=== PATIENT | female | born 1930 | race Caucasian/White ===

== ENCOUNTER 2019-01-23 13:49 | Inpatient (IN) | payer OTHER ==
[~2019-01-23] VITALS: Ht 152.4 cm; Wt 68.6 kg
[2019-01-23 14:31] LABS: BASOPHIL % 0.5 % (0-2); PLATELET COUNT 232 x10^3mcL (130-400); RED CELL DISTRIBUTION WIDTH 12.9 % (11.5-14.5)
[2019-01-23 14:49] LABS: CALCIUM 8.2 mg/dL (8.5-10.1); CARBON DIOXIDE 25.4 mmol/L (21-32); CHLORIDE SERUM 94 mmol/L (98-107); CREATININE SERUM 0.8 mg/dL (0.6-1.0); GLUCOSE SERUM 136 mg/dL (74-106); POTASSIUM SERUM 3.2 mmol/L (3.5-5.1); SODIUM SERUM 131 mmol/L (136-145)
[2019-01-23 14:53] LABS: ALBUMIN 3.6 g/dL (3.4-5.0); ALKALINE PHOSPHATASE 51 U/L (46-116); ALT/SGPT 40 U/L (14-59); AST/SGOT 41 U/L (15-37); BILIRUBIN DIRECT 0.12 mg/dL (0.0-0.2); BILIRUBIN TOTAL 0.3 mg/dL (0.20-1.00); LIPASE 90 IU/L (73-393); TOTAL PROTEIN, SERUM 7.7 g/dL (6.4-8.2)
[2019-01-23 15:10] LABS: CALCIUM 8.4 mg/dL (8.5-10.1); CARBON DIOXIDE 25.2 mmol/L (21-32); CHLORIDE SERUM 94 mmol/L (98-107); CREATININE SERUM 0.7 mg/dL (0.6-1.0); GLUCOSE SERUM 137 mg/dL (74-106); POTASSIUM SERUM 3.2 mmol/L (3.5-5.1); SODIUM SERUM 131 mmol/L (136-145)
[2019-01-23 15:15] LABS: ALBUMIN 3.7 g/dL (3.4-5.0); ALKALINE PHOSPHATASE 52 U/L (46-116); ALT/SGPT 42 U/L (14-59); AST/SGOT 43 U/L (15-37); BILIRUBIN TOTAL 0.3 mg/dL (0.20-1.00); TOTAL PROTEIN, SERUM 7.8 g/dL (6.4-8.2)
[2019-01-23 16:27] LABS: MAGNESIUM 2.2 mg/dL (1.8-2.4); PHOSPHOROUS 3.7 mg/dL (2.5-4.9)
[2019-01-23 20:14] VITALS: BP 124/58
[2019-01-23 20:32] VITALS: BP 113/59
[2019-01-23] MEDS ORDERED: LOSARTAN POTASS50 M1 PO (21:25)
[2019-01-23] MEDS ORDERED: MECLIZINE HYDRO25 M1 PO (21:26)
[2019-01-23] MEDS ORDERED: CLARITIN10 MG PO (21:27)
[2019-01-23] MEDS ORDERED: KLO0.5 PO (21:27)
[2019-01-23] MEDS ORDERED: MELOXICAM15 M1 PO (21:27)
[2019-01-23] MEDS ORDERED: LEVOCETIRIZINE D5 M1 PO (21:28)
[2019-01-23] MEDS ORDERED: NOR10 PO (21:28)
[2019-01-23] MEDS ORDERED: MONTELUKAST SOD10 M1 PO (21:28)
[2019-01-23] MEDS ORDERED: ALBUTEROL1.25 MG/3 NEB (21:30)
[2019-01-23 21:35] LABS: microscopic required? NO
[2019-01-23 21:45] LABS: UA SPECIFIC GRAVITY 1.025 (1.005-1.035); urine erythrocyte NEGATIVE (NEGATIVE)
[2019-01-23 23:14] VITALS: BP 101/42
[2019-01-23 23:40] VITALS: BP 113/48
[2019-01-24 03:02] VITALS: BP 125/60
[2019-01-24 03:48] LABS: PLATELET COUNT 234 x10^3mcL (130-400); RED CELL DISTRIBUTION WIDTH 13.1 % (11.5-14.5)
[2019-01-24 03:49] LABS: BASOPHIL % 0 % (0-2)
[2019-01-24 04:03] LABS: CALCIUM 7.6 mg/dL (8.5-10.1); CARBON DIOXIDE 22.5 mmol/L (21-32); CHLORIDE SERUM 98 mmol/L (98-107); CREATININE SERUM 0.7 mg/dL (0.6-1.0); GLUCOSE SERUM 171 mg/dL (74-106); MAGNESIUM 2.4 mg/dL (1.8-2.4); PHOSPHOROUS 3.2 mg/dL (2.5-4.9); POTASSIUM SERUM 4.3 mmol/L (3.5-5.1); SODIUM SERUM 130 mmol/L (136-145)
[2019-01-24 07:30] VITALS: BP 141/68
[2019-01-24 08:15] VITALS: Ht 152.4 cm; Wt 68.6 kg
[2019-01-24 17:05] VITALS: BP 115/60
[2019-01-24 20:10] VITALS: BP 120/57
[2019-01-25 05:53] VITALS: BP 114/46
[2019-01-25 06:27] LABS: PLATELET COUNT 251 x10^3mcL (130-400)
[2019-01-25 06:40] LABS: CALCIUM 7.9 mg/dL (8.5-10.1); CARBON DIOXIDE 26.6 mmol/L (21-32); CHLORIDE SERUM 102 mmol/L (98-107); CREATININE SERUM 0.7 mg/dL (0.6-1.0); GLUCOSE SERUM 165 mg/dL (74-106); MAGNESIUM 2.3 mg/dL (1.8-2.4); PHOSPHOROUS 3.1 mg/dL (2.5-4.9); POTASSIUM SERUM 3.8 mmol/L (3.5-5.1); SODIUM SERUM 136 mmol/L (136-145)
[2019-01-25 08:09] LABS: BASOPHIL % 0 % (0-2)
[2019-01-25 08:48] VITALS: BP 108/46
[2019-01-25 11:59] VITALS: BP 124/56
[2019-01-25] MEDS ORDERED: ZIOPTAN 0.0015% OP (13:45)
[2019-01-25 17:44] VITALS: BP 133/67
[2019-01-25 22:23] VITALS: BP 136/69
[2019-01-26] VITALS (7 sets, daily range): BP systolic 97–139; BP diastolic 59–79
[2019-01-26 06:31] LABS: PLATELET COUNT 257 x10^3mcL (130-400); RED CELL DISTRIBUTION WIDTH 12.7 % (11.5-14.5)
[2019-01-26 06:42] LABS: BASOPHIL % 0 % (0-2)
[2019-01-26 06:45] LABS: CALCIUM 8.1 mg/dL (8.5-10.1); CARBON DIOXIDE 28.4 mmol/L (21-32); CHLORIDE SERUM 99 mmol/L (98-107); CREATININE SERUM 0.6 mg/dL (0.6-1.0); GLUCOSE SERUM 154 mg/dL (74-106); MAGNESIUM 2.3 mg/dL (1.8-2.4); PHOSPHOROUS 3.4 mg/dL (2.5-4.9); POTASSIUM SERUM 3.3 mmol/L (3.5-5.1); SODIUM SERUM 135 mmol/L (136-145)
[2019-01-27 05:06] VITALS: BP 142/68
[2019-01-27 06:32] LABS: PLATELET COUNT 243 x10^3mcL (130-400); RED CELL DISTRIBUTION WIDTH 12.6 % (11.5-14.5)
[2019-01-27 06:47] LABS: BASOPHIL % 0 % (0-2)
[2019-01-27 07:15] LABS: CALCIUM 8.3 mg/dL (8.5-10.1); CARBON DIOXIDE 31.7 mmol/L (21-32); CHLORIDE SERUM 98 mmol/L (98-107); CREATININE SERUM 0.6 mg/dL (0.6-1.0); GLUCOSE SERUM 156 mg/dL (74-106); PHOSPHOROUS 3.5 mg/dL (2.5-4.9); POTASSIUM SERUM 3.5 mmol/L (3.5-5.1); SODIUM SERUM 137 mmol/L (136-145)
[2019-01-27 08:45] VITALS: BP 101/71
[2019-01-27 12:50] VITALS: BP 126/67
[2019-01-27 17:59] VITALS: BP 118/70
[2019-01-27 21:27] VITALS: BP 135/71
[2019-01-28 06:08] VITALS: BP 139/73
[2019-01-28 07:06] LABS: BASOPHIL % 0.2 % (0-2); CALCIUM 8.3 mg/dL (8.5-10.1); CARBON DIOXIDE 30.7 mmol/L (21-32); CHLORIDE SERUM 98 mmol/L (98-107); CREATININE SERUM 0.7 mg/dL (0.6-1.0); GLUCOSE SERUM 162 mg/dL (74-106); PLATELET COUNT 259 x10^3mcL (130-400); POTASSIUM SERUM 3.4 mmol/L (3.5-5.1); RED CELL DISTRIBUTION WIDTH 12.6 % (11.5-14.5); SODIUM SERUM 137 mmol/L (136-145)
[2019-01-28 08:22] VITALS: BP 145/79
[2019-01-28 16:41] VITALS: BP 127/72
[2019-01-28 19:45] VITALS: BP 109/70
[2019-01-29 05:33] VITALS: BP 132/68
[2019-01-29 06:17] LABS: BASOPHIL % 0.2 % (0-2); PLATELET COUNT 281 x10^3mcL (130-400); RED CELL DISTRIBUTION WIDTH 12.6 % (11.5-14.5)
[2019-01-29 06:47] LABS: CALCIUM 8.3 mg/dL (8.5-10.1); CARBON DIOXIDE 29.6 mmol/L (21-32); CHLORIDE SERUM 97 mmol/L (98-107); CREATININE SERUM 0.7 mg/dL (0.6-1.0); GLUCOSE SERUM 157 mg/dL (74-106); POTASSIUM SERUM 3.7 mmol/L (3.5-5.1); SODIUM SERUM 137 mmol/L (136-145)
[2019-01-29 08:26] VITALS: BP 144/78
[2019-01-29] MEDS ORDERED: IPRATROPIUM BROM3 M2 HHN (08:35)
[2019-01-29] MEDS ORDERED: XOP0.63 IH (08:36)
[2019-01-29] MEDS ORDERED: LEVOFLOXACIN I100 ML IV (08:38)
[2019-01-29 12:21] VITALS: BP 129/76
[2019-01-29 12:29] VITALS: BP 129/76
[2019-01-29 12:30] VITALS: BP 129/76
[2019-01-29 12:31] VITALS: BP 129/76
== END 2019-01-29 14:20 | DRG 189 ==
LOC: ED 13:49 → IC 15:14 → DU 15:14 → IC 19:54 → DU 01-24 12:15 → MU 01-27 12:54 → DU 01-27 13:05 → MU 01-27 16:00
PROVIDERS: Internal Medicine; Student in an Organized Health Care Education/Training Program; ADMIT Internal Medicine
DX: J96.01 Acute respiratory failure with hypoxia (principal); E87.2 Acidosis; J45.901 Unspecified asthma with (acute) exacerbation; E87.1 Hypo-osmolality and hyponatremia; E87.6 Hypokalemia; E86.0 Dehydration; E83.51 Hypocalcemia; E87.8 Other disorders of electrolyte and fluid balance, not elsewhere classified; I10 Essential (primary) hypertension; Z68.32 Body mass index [BMI] 32.0-32.9, adult; Z91.14 Patient's other noncompliance with medication regimen
CPT/HCPCS: 36600; 83880; 85378; 87804; 94150; 97112-GP; 97116-GP; 97530-GP; G0378; J1644; J1940; J1956; J2920; J2930; J3475; J7030; J7040; J7512; J7620; J7626; Q9967